=== PATIENT | male | born 1960 | race Caucasian/White ===

== ENCOUNTER 2019-04-19 08:36 | Emergency (ER) | payer BC, OTHER ==
[2019-04-19 08:40] VITALS: TEMP 98.9
[2019-04-19] MEDS ORDERED: LIDOCAINE 1% INJ 10MG/ML (20 ML MDV) SQ ONE (08:42)
--- NOTE | 2019-04-19 08:48 | ED ---
General Adult HPI - General Chief complaint: Wound/Laceration Stated complaint: IHS-finger injury Time Seen by Provider: 04/19/19 08:42 Source: patient Mode of arrival: ambulatory Limitations: no limitations - History of Present Illness Initial comments: Dictation was produced using [employer] dictation software. please excuse any grammatical, word or spelling errors. Chief Complaint: 59-year-old male presents with left index finger laceration History of Present Illness: Is a 59-year-old male who suffered a left index finger laceration while at work today. Patient states his tetanus is updated 2 years ago. He had a angle inner diameter grinder tool that he was using when his finger got caught with a 3/8 threaded screw. Small piece of tissue was chewed off of his finger. Patient is in other injuries. Alleged incident occurred approximately 30-45 minutes prior to arrival. The ROS documented in this emergency department record has been reviewed and confirmed by me. Those systems with pertinent positive or negative responses have been documented in the HPI. All other systems are other negative and/or noncontributory. PHYSICAL EXAM: General Impression: Alert and oriented x3, not in acute distress HEENT: Normocephalic atraumatic, extra-ocular movements intact, pupils equal and reactive to light bilaterally, mucous membranes moist. Cardiovascular: Heart regular rate and rhythm, S1&S2 audible, no murmurs, rubs or gallops Chest: Lungs clear to auscultation bilaterally, no rhonchi, no wheeze, no rales Abdomen: Bowel sounds present, abdomen soft, non-tender, non-distended, no organomegaly Musculoskeletal: Pulses present and equal in all extremities, no peripheral edema Motor: no focal deficits noted Neurological: CN II-XII grossly intact, no focal motor or sensory deficits noted Skin: Intact with no visualized rashes Left index finger: 1 cm x 0.5cm laceration to the left index finger in the shape of a triangle ED course: 59 y Old male presents with left index finger injury suffered at work. Patient's tetanus is updated. Vital signs upon arrival are within acceptable limits. No active hemorrhaging to the laceration site. he noted has an updated tetanus from 2 years ago. X-ray of the index finger shows no foreign bodies. Wound was irrigated extensively using sterile water. Laceration was repaired. Patient counseled on suture care. He is told to have sutures removed in 10-14 days. Please of Gelfoam was placed over the wound. Patient given bacitracin to keep the wound moist. She flexibility. Patient told to follow up with primary care physician for suture removal or to return to emergency Department for suture removal. Patient told to visualize the wound at least twice daily and to wash with soap and water at home. Return parameters discussed. - Related Data Allergies Allergy/AdvReac Type Severity Reaction Status Date / Time No Known Allergies Allergy Verified 04/19/19 08:40 Review of Systems ROS Statement: Those systems with pertinent positive or pertinent negative responses have been documented in the HPI. ROS Other: All systems not noted in ROS Statement are negative. Past Medical History Past Medical History: Hypertension History of Any Multi-Drug Resistant Organisms: None Reported Past Surgical History: Back Surgery, Joint Replacement Past Psychological History: No Psychological Hx Reported Smoking Status: Never smoker Past Alcohol Use History: Occasional Past Drug Use History: None Reported General Exam Limitations: no limitations Course Vital Signs 04/19/19 04/19/19 08:37 08:40 Temperature 98.9 F Pulse Rate 79 Respiratory 18 20 Rate Blood Pressure 181/88 O2 Sat by Pulse 98 Oximetry Procedures - Laceration Laceration #1 Consent Obtained: verbal consent Indication: laceration Site: other (left index finger, 1 cm) Description: irregular Depth: simple, single layer Anesthetic Used: lidocaine 1% Anesthesia Technique: nerve block Amount (mls): 2 Pre-repair: irrigated extensively Type of Sutures: nylon Size of Sutures: 4-0 Technique: simple, interrupted Patient Tolerated Procedure: well Disposition Clinical Impression: Laceration Disposition: HOME SELF-CARE Condition: Fair Instructions (If sedation given, give patient instructions): Laceration (DC) Additional Instructions: Returns emergency department with worsening pain, redness or bleeding to the site. Otherwise have wound rechecked in 10-14 days for suture removal. Is patient prescribed a controlled substance at d/c from ED?: No Referrals: William Hart DO [Primary Care Provider] - 1-2 days Time of Disposition: 10:00
[2019-04-19 09:36] VITALS: RESP 20
--- NOTE | 2019-04-19 09:47 | XR ---
EXAMINATION TYPE: XR finger LT DATE OF EXAM: 04/19/2019 COMPARISON: NONE HISTORY: Laceration injury with pain. TECHNIQUE: 3 views left second finger are acquired. FINDINGS: No acute fracture or dislocation is seen. Moderate narrowing with mild spurring and subchon dral cystic change at the second DIP joint. Mild narrowing and spurring with subchondral cystic escobar e at the second PIP joint. Mild to moderate diffuse soft tissue swelling slightly more prominent surr ounding the proximal phalanx could in part reflect product of body habitus. No suspicious radiodense foreign body identified in the soft tissue. IMPRESSION: As above.
[2019-04-19] MEDS ORDERED: GELATIN SPONGE,ABSORB (LARGE) 1 EACH SPONGE TOPICAL STA (09:49)
[2019-04-19] MEDS ORDERED: GELATIN SPONGE,ABSORB (SMALL) 1 EACH SPONGE TOPICAL STA (09:51)
[2019-04-19 10:29] VITALS: BP 150/72; PULSE 65
== END 2019-04-19 10:29 | disposition home or self-care (01) ==
LOC: EC 08:36
DX: S61.211A Laceration without foreign body of left index finger without damage to nail, initial encounter (principal); I10 Essential (primary) hypertension; W27.8XXA Contact with other nonpowered hand tool, initial encounter; Y93.H9 Activity, other involving exterior property and land maintenance, building and construction; Y92.69 Other specified industrial and construction area as the place of occurrence of the external cause; Y99.0 Civilian activity done for income or pay
CPT/HCPCS: 73140; 99283; 12001; J2001

== ENCOUNTER 2019-07-28 10:49 | Day surgery (SDC) | payer BC ==
[2019-07-26 13:54] VITALS: BMI 47.5
[~2019-07-28 10:49] MED LIST: LACTATED RINGERS 1,000 ML IV SCH; LIDOCAINE 1% (10MG/ML) FOR IV START INTRADERMA PRN
[2019-07-28 11:10] VITALS: TEMP 98
[2019-07-28] MEDS ORDERED: PROPOFOL 10 MG/ML 20 ML VIAL IV ONE (11:15)
[2019-07-28 11:48] VITALS: RESP 18
--- NOTE | 2019-07-28 11:53 | P.PCN ---
Date of Procedure: 07/28/19 Description of Procedure: BRIEF HISTORY: Patient is a 59-year-old male presenting for outpatient colonoscopy for screening from malignant neoplasm of the colon. Does report worsening constipation recently. Started on a stool softener with some improvement in symptoms. Last colonoscopy at the age of 51. He does occasionally note some bright red blood per rectum. PROCEDURE PERFORMED: Colonoscopy. PREOPERATIVE DIAGNOSIS: Screening for malignant neoplasm of the colon, Last colonoscopy at 51. ESTIMATED BLOOD LOSS: Minimal. IV sedation per Anesthesia. PROCEDURE: After informed consent was obtained, the patient, was brought into the endoscopy unit. IV sedation was administered by Anesthesia under continuous monitoring. Digital rectal examination was normal. Initially the Olympus CF-190 flexible video colonoscope was then inserted in the rectum, gradually advanced into the cecum without any difficulty. Careful examination was performed as the scope was gradually being withdrawn. Ileocecal valve and the appendiceal orifice were visualized and appeared normal. Prep was excellent. Mucosa of the cecum, ascending colon, transverse colon, descending colon, sigmoid colon, and rectum appeared normal, low-grade internal hemorrhoids noted. Retroflexion was performe d in the rectum and no lesions were seen. The patient tolerated the procedure well. IMPRESSION: Normal-appearing colon from rectum to cecum. Low-grade internal hemorrhoids. RECOMMENDATIONS: Findings of this examination were discussed with the patient. Okay to resume diet. Okay to resume medications. Would recommend repeat colonoscopy in 10 years for screening. Patient has been recommended to take MiraLAX therapy daily for bowel movements.
[2019-07-28 12:08] VITALS: BP 131/76; PULSE 75
== END 2019-07-28 12:30 | disposition home or self-care (01) ==
LOC: ORWHC2ENDO 10:49
PROVIDERS: ATTEND Internal Medicine
DX: K64.8 Other hemorrhoids (principal); K59.00 Constipation, unspecified; G47.33 Obstructive sleep apnea (adult) (pediatric); Z79.1 Long term (current) use of non-steroidal anti-inflammatories (NSAID); Z96.653 Presence of artificial knee joint, bilateral; Z99.89 Dependence on other enabling machines and devices
CPT/HCPCS: 45378; J2704

== ENCOUNTER 2020-07-26 17:21 | Emergency (ER) | payer BC, OTHER ==
[2020-07-26 17:38] VITALS: BP 150/83; PULSE 87; RESP 18; TEMP 98.6
[2020-07-26] MEDS ORDERED: LIDOCAINE 1% INJ 10MG/ML (20 ML MDV) SQ ONE (19:06)
--- NOTE | 2020-07-26 19:26 | ED ---
Lower Extremity Injury HPI - General Chief Complaint: Extremity Injury, Lower Stated Complaint: IHS LT Toe Injury Time Seen by Provider: 07/26/20 18:45 Source: patient, RN notes reviewed Mode of arrival: wheelchair Limitations: no limitations - History of Present Illness Initial Comments: Vision is a 60-year-old male that presents emergency department complaining of left foot fifth digit pain. He notes he was at work when his toe got rolled over by a work cart with a heavy object on it. He notes that the car rolled over still toe boots. He noted his toe did not bleed very much but his work symptoms emergently get evaluated as it was swollen, bruised and did have a small laceration to the answer aspect of the fifth toe at the metatarsal phalan geal joint. Patient notes that his toe does feel little bit numb at this point. But he does have good range of motion sensation and feeling in his toe. Patient stated that the pain at that time was tolerable and does not need any pain medication. She denied any other complaints or issues. He denied any chest pain shortness breath headache nausea vomiting diarrhea constipation fever fatigue chills. - Related Data Home Medications Medication Instructions Recorded Confirmed Bisoprolol-Hctz 5-6.25 mg [Ziac 1 tab PO DAILY 07/26/19 07/26/19 5-6.25 MG] Naproxen Sodium [Aleve] 220 mg PO DIRECTED PRN 07/26/19 07/28/19 Previous Rx's Medication Instructions Recorded Cephalexin [Keflex] 500 mg PO Q6HR #40 cap 07/26/20 Allergies Allergy/AdvReac Type Severity Reaction Status Date / Time No Known Allergies Allergy Verified 07/26/20 17:38 Review of Systems ROS Statement: Those systems with pertinent positive or pertinent negative responses have been documented in the HPI. ROS Other: All systems not noted in ROS Statement are negative. Past Medical History Past Medical History: Hypertension, Sleep Apnea/CPAP/BIPAP Additional Past Medical History / Comment(s): C-PAP MACHINE, CONSTIPATION WITH OCCASIONAL BLOOD. History of Any Multi-Drug Resistant Organisms: None Reported Past Surgical History: Back Surgery, Joint Replacement Additional Past Surgical History / Comment(s): TOTAL RIGHT & LEFT KNEES. Past Anesthesia/Blood Transfusion Reactions: No Reported Reaction, Motion Sickness Past Psychological History: No Psychological Hx Reported Smoking Status: Never smoker Past Alcohol Use History: Occasional Past Drug Use History: None Reported - Past Family History Father Family Medical History: Cancer Additional Family Medical History / Comment(s): SKIN CANCER General Exam Limitations: no limitations General appearance: alert, in no apparent distress Head exam: Present: atraumatic, normocephalic, normal inspection Eye exam: Present: normal appearance, PERRL, EOMI. Absent: scleral icterus, conjunctival injection, periorbital swelling Neck exam: Present: normal inspection Respiratory exam: Present: normal lung sounds bilaterally. Absent: respiratory distress, wheezes, rales, rhonchi, stridor Cardiovascular Exam: Present: regular rate, normal rhythm, normal heart sounds. Absent: systolic murmur, diastolic murmur, rubs, gallop, clicks Left Foot/Toe exam: Present: tenderness (Over the fifth digit), swelling (Fifth digit), laceration (To the plantar aspect of the fifth digit at the metatarsal phalangeal joint), ecchymosis (Fifth digit). Absent: full ROM (Secondary to swelling and pain) Neurovascular tendon exam: Present: no vascular compromise Neurological exam: Present: alert, oriented X3 Psychiatric exam: Present: normal affect, normal mood Skin exam: Present: warm, dry, intact, normal color. Absent: rash Course Vital Signs 07/26/20 17:35 Temperature 98.6 F Pulse Rate 87 Respiratory 18 Rate Blood Pressure 150/83 O2 Sat by Pulse 98 Oximetry Procedures - Laceration Laceration #1 Consent Obtained: verbal consent Indication: laceration Site: foot (Interdigit space between fifth and fourth toe on left foot) Size (cm): 3 Description: linear Depth: simple, single layer Anesthetic Used: lidocaine 1% Anesthesia Technique: nerve block Pre-repair: irrigated extensively Type of Sutures: nylon Size of Sutures: 5-0 Number of Sutures: 3 Technique: simple, interrupted Patient Tolerated Procedure: well, no complications Medical Decision Making - Medical Decision Making 60-year-old male complaining of left foot fifth digit injury. X-ray of the left toes, lidocaine ordered. X-ray shows to acute fractures in the proximal phalanx and the distal phalanx of the left little toe. 500 mg of Keflex ordered due to patient having open wound and area of injury. Patient tolerated suturing well. Case discussed with Dr. Null outpatient discharge home with follow-up primary care. - Radiology Data Radiology results: report reviewed, image reviewed X-ray of the left toes: There is nondisplaced fracture of the head of the proximal phalanx of the little toe. There is no dislocation. There is also nondisplaced transverse comminuted fracture through the distal phalanx of the little toe. The middle phalanx is intact. Disposition Clinical Impression: Fracture of fifth toe, left, open, Laceration Disposition: HOME SELF-CARE Condition: Stable Instructions (If sedation given, give patient instructions): Toe Fracture (ED) Additional Instructions: Please return to the Emergency Department if symptoms worsen or any other concerns. Take Tylenol and Motrin as needed for pain. Follow-up with primary care as needed. Please return in 10 days to have sutures removed. Follow-up with orthopedist. Keep area as clean and dry possible. Take antibiotics as prescribed until complete. Is patient prescribed a controlled substance at d/c from ED?: No Referrals: William Hart DO [Primary Care Provider] - 1-2 days Elian Valdez MD [STAFF PHYSICIAN] - 1-2 days Time of Disposition: 20:25
--- NOTE | 2020-07-26 19:41 | XR ---
EXAMINATION TYPE: XR toes LT DATE OF EXAM: 07/26/2020 COMPARISON: NONE HISTORY: Pain TECHNIQUE: 3 views FINDINGS: There is nondisplaced fracture of the head of the proximal phalanx of the little toe. There is no dislocation. There is also nondisplaced transverse comminuted fracture through the distal phal anx of the little toe. The middle phalanx is intact. IMPRESSION: Acute fractures of the little toe as above.
[2020-07-26] MEDS ORDERED: CEPHALEXIN 500 MG CAP PO STA (19:46)
== END 2020-07-26 20:43 | disposition home or self-care (01) ==
LOC: EC 17:21
DX: S92.515B Nondisplaced fracture of proximal phalanx of left lesser toe(s), initial encounter for open fracture (principal); S92.535B Nondisplaced fracture of distal phalanx of left lesser toe(s), initial encounter for open fracture; I10 Essential (primary) hypertension; W20.8XXA Other cause of strike by thrown, projected or falling object, initial encounter; Y99.0 Civilian activity done for income or pay
CPT/HCPCS: 99283; 12002; 73660; J2001

== ENCOUNTER → 2021-04-08 | Outpatient (CLI) | payer BC ==
--- NOTE | 2021-04-08 10:38 | FL ---
EXAMINATION TYPE: FL barium swallow DATE OF EXAM: 04/08/2021 COMPARISON: None HISTORY: Dysphagia lump in throat dryness with swallowing TECHNIQUE: Single contrast technique was utilized with the patient's lap band. Real-time fluoroscopy and overhead radiographs were obtained. FINDINGS: 46 seconds of fluoroscopy time was provided. Thin barium was utilized. 84 images were obtained. Lap band position appears normal esophagus-normal caliber has normal contour 2 the gastroesophageal j unction. No is made of tertiary contractions. Note is also made of a persistent cricopharyngeus muscl e during the exam. IMPRESSION: 1. Persistence of a cricopharyngeus muscle during swallowing. 2. Presbyesophagus with tertiary contractions.
--- NOTE | 2021-04-08 10:42 | CT ---
EXAMINATION TYPE: CT soft tissue neck w con DATE OF EXAM: 04/08/2021 8:56 AM COMPARISON: None available HISTORY: lump in throat non palpable CT DLP: 877.80 mGycm Automated exposure control for dose reduction was used. CONTRAST: CT scan of the neck is performed following with IV Contrast, patient injected with 100 mL of Isovue 3 00. Axial images are obtained, coronal and sagittal reformatted images are reviewed. FINDINGS: Airway: Slightly prominent lingual tonsils more on the right side, please correlate clinically. Furth er ENT consultation can be considered. Otherwise unremarkable nasopharynx, oropharynx, hypopharynx, l arynx and visualized portion of the trachea and esophagus. Parotid/submandibular glands: No gross abnormality seen. Unremarkable thyroid gland. Carotid/Vascular Structures: Unremarkable Osseous Structures: Mucosal thickening of the ethmoid air cells. Mild degenerative changes of the cer vical spine. No aggressive bone lesion. Other: No pathologically enlarged lymph nodes in the neck. 4 mm metallic density seen just to the rig ht of the midline in the subcutaneous fat at the level of the right sternoclavicular joint, please co rrelate clinically. IMPRESSION: Slightly prominent lingual tonsils more on the right side, please correlate clinically. Further ENT consultation can be considered. No other significant abnormality identified in the neck. Incidental findings as described above.
== END | disposition home or self-care (01) ==
LOC: RADCTMAIN 08:23
PROVIDERS: ATTEND Otolaryngology
DX: K21.9 Gastro-esophageal reflux disease without esophagitis (principal); R22.1 Localized swelling, mass and lump, neck; R13.10 Dysphagia, unspecified
CPT/HCPCS: 74220; 70491; Q9967

== ENCOUNTER → 2021-06-05 | Outpatient (CLI) | payer BC ==
--- NOTE | 2021-06-05 17:26 | CONS ---
CONSULTATION DATE OF SERVICE: 06/05/2021 This 61-year-old gentleman has been re-evaluated in [facility] for obstructive sleep apnea-hypopnea syndrome. The last time I saw this patient was in 2013. The patient continues to use his CPAP equipment, but he started to wake up in the middle of the night. His complained of a significant amount of movements during sleep. His sleep schedule is from 10:30 p.m. to 5:30 a.m. on weekdays and from 11 p.m. to 6 a.m. on weekends. No problems with falling asleep. He wakes up from sleep around 2 or 3 times and is constantly twitching to his legs during the night, according to his . Usually he sleeps on the back position. During the day he feels sleepy. He takes one nap around 4 p.m. [place] Sleepiness Scale today is 8. No history of hypnagogic hallucinations, sleep paralysis or cataplexy. I checked his CPAP unit. Usage is 30/30 nights for more than 4 hours, average 6.9 hours per night. Pressure is 15 cm of water. The machine does not have information about apnea-hypopnea index. PAST MEDICAL HISTORY: Positive for hypertension. PAST SURGICAL HISTORY: Lap band surgery, bilateral knee replacement, left foot toe fracture, back surgery. SOCIAL HISTORY: Negative for smoking. Alcohol consumption occasional. REVIEW OF SYSTEMS: Awakenings from sleep while on treatment with CPAP, twitching of legs during sleep, sleepiness during the day. The patient takes naps. No fevers. No double vision. No recent chest pain. No shortness of breath. No abdominal pain. No bleeding episodes. No blood in the urine. No seizure episodes. MEDICATIONS: 1. Atorvastatin 20 mg once a day. 2. Lisinopril 20 mg once a day. 3. Amlodipine 5 mg once a day. 4. Ziac. PHYSICAL EXAMINATION: GENERAL: Pleasant gentleman without distress. VITAL SIGNS: BP 146/77, HR 69, RR 16, height 6 feet 1 inch, weight 371.6, body mass index 48.9, temperature 97.3, oxygen saturation at room air 95%. HEENT: PERRLA, EOMI, evaluation of oropharynx showed tongue protrudes midline. Extremely low position of soft palate; Mallampati IV. NECK: Supple, no JVD. Thyroid is not palpable. Neck is wide; 19 inches in circumference. LUNGS: Clear to percussion and to auscultation. Good air exchange. No wheezing or rhonchi. HEART: S1, S2 regular. No murmurs, gallops, or rubs. ABDOMEN: Obese. EXTREMITIES: No clubbing or cyanosis. STEAM SHOVELMAN: Awake, alert, and oriented X3. Cranial nerves 2 to 7 intact. There is no fasciculation or atrophy. noted. No focal deficits observed. IMPRESSION: 1. Severe obstructive sleep apnea-hypopnea syndrome. The patient demonstrated 100% compliance with treatment but has awakenings from sleep while using CPAP machine. CPAP unit does not have information about apnea-hypopnea index. 2. Periodic limb movements. 3. Hypertension. 4. Obesity; body mass index 48.9. 5. Status post lap band surgery. 6. Status post bilateral knee replacement. 7. Status post back surgery. 8. Status post left foot toe fracture in 2020. 9. Hyperlipidemia. PLAN: 1. CPAP titration for re-evaluation of effective CPAP pressure at the present time. Patient's CPAP unit does not have information about apnea-hypopnea index. Patient has awakenings from sleep, has movements of his legs during the night. We will check leg movements at the present time. 2. Please check iron profile, including ferritin level. Low level of iron may increase risk for periodic limb movements. 3. Losing weight. 4. No driving if feeling sleepiness. 5. Following plan after reviewing results of titration. Patient may need pharmacotherapy for periodic limb movements and possibly pressure in the machine may need to be adjusted. Thank you very much for referring this patient for consultation. Sincerely, Carlos Skinner MD, PhD, FAASM Diplomat of [employer] Sleep Medicine Board of [employer] [facility] Hazel Hurst MMODL / IJN: [id number] /
== END | disposition home or self-care (01) ==
LOC: SLEEP 15:24
PROVIDERS: ATTEND Internal Medicine
DX: G47.33 Obstructive sleep apnea (adult) (pediatric) (principal); I10 Essential (primary) hypertension; E66.9 Obesity, unspecified; E78.5 Hyperlipidemia, unspecified; Z68.42 Body mass index [BMI] 45.0-49.9, adult; Z98.890 Other specified postprocedural states; Z96.653 Presence of artificial knee joint, bilateral
CPT/HCPCS: 99211

== ENCOUNTER → 2021-08-14 | Outpatient (CLI) | payer BC ==
--- NOTE | 2021-08-14 18:05 | P.PN ---
Subjective DATE: [] FOLLOW UP VISIT. Patient with obstructive sleep apnea hypopnea syndrome return to sleep center for follow-up visit. Recently patient had Pap titration for treatment of obstructive sleep apnea hypopnea syndrome. Patient received new PAP therapy unit and today is first visit after treatment was started with the new CPAP equipment. Patient was able to use PAP equipment every night for the whole night. The patient does not have significant problems with the mask, PAP pressure and humidification. [place] sleepiness scale is 6. I checked information from PAP unit. PAP unit pressure from 9-15, average 12.6 cm H2O. Usage is 100 % for more then 4 hours, average 6.8 hours per night. Leak is 22 l/m, which is in acceptable range. Apnea Hypopnea Index is 5.7, which is borderline. MEDICATIONS:1. Lisinopril 20 mg once a day 2. Atorvastatin 20 mg once a day 3. Amlodipine 5 mg once a day 4. Ziac During physical exam: GENERAL: A pleasant patient without any distress. VITAL SIGNS: BP 135/77, HR 72, RR 16 , weight 380.8, temperature 96.9, oxygen saturation at room air and he 6% . HEENT: PERRLA, EOMI.low position of soft palate, Mallapati for . NECK: Supple. No JVD. LUNGS: Clear to percussion and to auscultation. Good air exchange. No wheezing or rhonchi. HEART: S1, S2 regular. ABDOMEN: Soft and nontender. Obese EXTREMITIES: No clubbing or cyanosis. SEARCH DIRECTOR: Awake, alert, and oriented x3. No focal deficit. Impressions: 1. Obstructive sleep apnea-hypopnea syndrome. Patient demonstrated great compliance with treatment, benefiting from treatment. 2. Hypertension. 3. Obesity. 4. Periodic limb movements during titration without significant amount of micro-arousals. 5. Status post lap band surgery. 6. Status post bilateral knee replacement. 7. Status post back surgery. 8. Status post left fourth toe fracture. 9. Hyperlipidemia. Plan: 1. Continue using PAP equipment every night for the whole night. 2. To change air filter at least 1-2 times per month. 3. PAP unit should stay lower then position of the head. 4. Advised patient to remove all remaining water from humidifier canister daily and make it dry after each usage. Refill canister with fresh distilled water before each usage. 5. Sleep hygiene with regular time in bed for at least 8 hours. 6. Precautions related to driving. No driving if feel any sleepiness. 7. I will maintain prescription for PAP supplies including mask, tube, filters. 8. Follow up visit in 6 months or earlier if patient has any problems. 9. Watching weight. Thank you very much for allowing me to participate in the management of your patient. Carlos Skinner MD, PhD, FAASM. Diplomat of [place] [employer], Sleep Medicine Board by [place] [employer] Dental Hygiene Teacher of [facility] [place]
== END | disposition home or self-care (01) ==
LOC: SLEEP 15:20
PROVIDERS: ATTEND Internal Medicine
DX: G47.33 Obstructive sleep apnea (adult) (pediatric) (principal); E66.9 Obesity, unspecified; I10 Essential (primary) hypertension; E78.5 Hyperlipidemia, unspecified; Z96.653 Presence of artificial knee joint, bilateral; Z98.890 Other specified postprocedural states
CPT/HCPCS: 99212

== ENCOUNTER → 2022-02-19 | Outpatient (CLI) | payer BC ==
--- NOTE | 2022-02-19 16:58 | P.PN ---
Subjective DATE: 02/19/2022 FOLLOW UP VISIT. Patient with obstructive sleep apnea hypopnea syndrome return to sleep center for follow-up visit. Information from previous visit have been reviewed. Patient is using PAP equipment every night for the whole night, getting PAP supplies in time. The patient does not have significant problems with the mask, PAP unit and humidification. [place] sleepiness scale is 7, which is normal. I checked information from PAP unit. PAP unit pressure 9-15, average 12.3, maximum 13.4 cm H2O. Usage is 100 % for more then 4 hours, average 6.5 hours per night. Leak is in high range 38.2 l/m. Apnea Hypopnea Index is 6.2, which is slightly above border. MEDICATIONS:1. Atorvastatin 20 mg once a day 2. Lisinopril 20 mg once a day 3. Amlodipine 5 mg once a day 4. Ziac 10/6.25 mg once a day During physical exam: GENERAL: A pleasant patient without any distress. VITAL SIGNS: BP 166/73, HR 75, RR 18, weight 387.2, temperature 97.6, oxygen saturation at room air 95 % . HEENT: PERRLA, EOMI.low position of soft palate, Mallapati 4 . NECK: Supple. No JVD. LUNGS: Clear to percussion and to auscultation. Good air exchange. No wheezing or rhonchi. HEART: S1, S2 regular. ABDOMEN: Soft and nontender.[] EXTREMITIES: No clubbing or cyanosis. GENERAL ASSISTANT: Awake, alert, and oriented x3. No focal deficit. Impressions: 1. Obstructive sleep apnea-hypopnea syndrome. Patient demonstrated great compliance with treatment, benefiting from treatment. 2. Hypertension. 3. Periodic limb movements during titration without micro-arousals, no clinical symptoms. 4. Obesity. Patient increased weight and 7 pounds comparing to the previous visit. 5. Status post lap band surgery. 6. Status post back surgery. 7. Hyperlipidemia. 8. Status post bilateral knee replacement. Plan: 1. Continue using PAP equipment every night for the whole night. I increased maximal pressure up to 17 cm of water. 2. To change air filter at least 1-2 times per month. 3. PAP unit should stay lower then position of the head. 4. Advised patient to remove all remaining water from humidifier canister daily and make it dry after each usage. Refill canister with fresh distilled water before each usage. 5. Sleep hygiene with regular time in bed for at least 8 hours. 6. Precautions related to driving. No driving if feel any sleepiness. 7. I will maintain prescription for PAP supplies including mask, tube, filters. 8. Follow up visit in 6 months or earlier if patient has any problems. 9. Watching and losing weight. Thank you very much for allowing me to participate in the management of your patient. Carlos Skinner MD, PhD, FAASM. Diplomat of [place] [employer], Sleep Medicine Board by [place] [employer] Transfer Car Operator of [facility] [place]
== END ==
LOC: SLEEP 15:35
PROVIDERS: ATTEND Internal Medicine
DX: G47.33 Obstructive sleep apnea (adult) (pediatric) (principal); Z99.89 Dependence on other enabling machines and devices; I10 Essential (primary) hypertension; G47.61 Periodic limb movement disorder; E66.9 Obesity, unspecified; Z98.84 Bariatric surgery status; Z98.890 Other specified postprocedural states; E78.5 Hyperlipidemia, unspecified; Z96.653 Presence of artificial knee joint, bilateral
CPT/HCPCS: 99212

== ENCOUNTER → 2022-09-17 | Outpatient (CLI) | payer BC ==
--- NOTE | 2022-09-17 11:16 | P.PN ---
Subjective DATE: 09/16/2022 FOLLOW UP VISIT. Patient with obstructive sleep apnea hypopnea syndrome return to sleep center for follow-up visit. Information from previous visit have been reviewed. Patient is using PAP equipment every night for the whole night, getting PAP supplies in time. The patient does not have significant problems with the mask, PAP unit and humidification. [place] sleepiness scale is 7, which is normal. I checked information from PAP unit. PAP unit pressure 9-17, average 10.0 cm H2O. Usage is 100 % for more then 4 hours, average 7 hours per night. Leak is 24.1 l/m, which is in acceptable range. Apnea Hypopnea Index is 2.1, which is normal. MEDICATIONS:1. Atorvastatin 20 mg once a day 2. Lisinopril 20 mg once a day 3. Amlodipine 5 mg once a day 4. Ziac 10/625 milligrams once a day During physical exam: GENERAL: A pleasant patient without any distress. VITAL SIGNS: BP 110/73, HR 64, RR 16 , weight 321.2, temperature 97.9, oxygen saturation at room air 92 % . HEENT: PERRLA, EOMI.low position of soft palate, Mallapati 4 . NECK: Supple. No JVD. LUNGS: Clear to percussion and to auscultation. Good air exchange. No wheezing or rhonchi. HEART: S1, S2 regular. ABDOMEN: Soft and nontender.[] EXTREMITIES: No clubbing or cyanosis. HISTOLOGY SPECIALIST: Awake, alert, and oriented x3. No focal deficit. Impressions: 1. Obstructive sleep apnea-hypopnea syndrome. Patient demonstrated great compliance with treatment, benefiting from treatment. 2. Hypertension. 3. history of periodic limb movements, presently no symptoms and complaints. 4. history of obesity, patient lost 66 pounds comparing with previous visit. 5. status post lap band surgery. 6. status post back surgery. 7. status post bilateral knee replacement. 8. hyperlipidemia. Plan: 1. Continue using PAP equipment every night for the whole night. 2. To change air filter at least 1-2 times per month. 3. PAP unit should stay lower then position of the head. 4. Advised patient to remove all remaining water from humidifier canister daily and make it dry after each usage. Refill canister with fresh distilled water before each usage. 5. Sleep hygiene with regular time in bed for at least 8 hours. 6. Precautions related to driving. No driving if feel any sleepiness. 7. I will maintain prescription for PAP supplies including mask, tube, filters. 8. Watching and losing weight. 9. Follow up visit in 6 months or earlier if patient has any problems. Thank you very much for allowing me to participate in the management of your patient. Carlos Skinner MD, PhD, FAASM. Diplomat of [place] [employer], Sleep Medicine Board by [place] [employer] Engagement Lead of [facility] [place]
== END ==
LOC: 3 N SLEEP 09:56
PROVIDERS: ATTEND Internal Medicine
DX: G47.33 Obstructive sleep apnea (adult) (pediatric) (principal); E66.9 Obesity, unspecified; E78.5 Hyperlipidemia, unspecified; I10 Essential (primary) hypertension; Z98.84 Bariatric surgery status; Z99.89 Dependence on other enabling machines and devices; Z79.899 Other long term (current) drug therapy; Z96.653 Presence of artificial knee joint, bilateral; Z98.890 Other specified postprocedural states
CPT/HCPCS: 99212

== ENCOUNTER → 2023-03-25 | Outpatient (CLI) | payer BC ==
--- NOTE | 2023-03-25 11:17 | P.PN ---
Subjective DATE: 03/25/2023 FOLLOW UP VISIT. Patient with obstructive sleep apnea hypopnea syndrome return to sleep center for follow-up visit. Information from previous visit have been reviewed. Patient is using PAP equipment every night for the whole night, getting PAP supplies in time. The patient does not have significant problems with the mask, PAP unit and humidification. [place] sleepiness scale is 7, which is normal. I checked information from PAP unit. PAP unit pressure 9-17, average 10.8 cm H2O. Usage is 100 % for more then 4 hours, average 7 hours per night. Leak is 20.2 l/m, which is in acceptable range. Apnea Hypopnea Index is 2.9, which is normal. MEDICATIONS:1. Atorvastatin 20 mg once a day 2. Lisinopril 20 mg once a day 3. Amlodipine 5 mg once a day 4. Ziac 10/6.25 milligrams once a day During physical exam: GENERAL: A pleasant patient without any distress. VITAL SIGNS: BP 146/76, HR 71, RR 16 , weight 351.6, temperature 98.0, oxygen saturation at room air 94 % . HEENT: PERRLA, EOMI.low position of soft palate, Mallapati 4 . NECK: Supple. No JVD. LUNGS: Clear to percussion and to auscultation. Good air exchange. No wheezing or rhonchi. HEART: S1, S2 regular. ABDOMEN: Soft and nontender.[] EXTREMITIES: No clubbing or cyanosis. FINANCIAL AGENT: Awake, alert, and oriented x3. No focal deficit. Impressions: 1. Obstructive sleep apnea-hypopnea syndrome. Patient demonstrated great compliance with treatment, benefiting from treatment. 2. Obesity, patient increased weight on 30 pounds comparing with previous visit. 3. Hypertension. 4. History of periodic limb movements, no complaints at the present time. 5. Status post lap band surgery. 6. Status post back surgery. 7. Hyperlipidemia. 8. Status post bilateral knee replacement. Plan: 1. Continue using PAP equipment every night for the whole night. 2. To change air filter at least 1-2 times per month. 3. PAP unit should stay lower then position of the head. 4. Advised patient to remove all remaining water from humidifier canister daily and make it dry after each usage. Refill canister with fresh distilled water before each usage. 5. Sleep hygiene with regular time in bed for at least 8 hours. 6. Precautions related to driving. No driving if feel any sleepiness. 7. I will maintain prescription for PAP supplies including mask, tube, filters. 8. Follow up visit in 6 months or earlier if patient has any problems. 9. Watching and losing weight. Thank you very much for allowing me to participate in the management of your patient. Carlos Skinner MD, PhD, FAASM. Diplomat of [place] [employer], Sleep Medicine Board by [place] [employer] [place] Bi Developer of [facility] [place]
== END ==
LOC: 3 N SLEEP 10:08
PROVIDERS: ATTEND Internal Medicine
DX: G47.33 Obstructive sleep apnea (adult) (pediatric) (principal); E66.9 Obesity, unspecified; I10 Essential (primary) hypertension; E78.5 Hyperlipidemia, unspecified; G47.61 Periodic limb movement disorder; Z98.84 Bariatric surgery status; Z98.890 Other specified postprocedural states; Z96.653 Presence of artificial knee joint, bilateral; Z79.899 Other long term (current) drug therapy; Z99.89 Dependence on other enabling machines and devices
CPT/HCPCS: 99212

== ENCOUNTER → 2024-02-17 | Outpatient (CLI) | payer BC ==
[2024-02-17 11:39] VITALS: BP 130/79; PULSE 80; RESP 16; TEMP 98.2
--- NOTE | 2024-02-17 11:55 | P.PROGSL ---
Subjective DATE: 2024 FOLLOW UP VISIT. Patient with obstructive sleep apnea hypopnea syndrome return to sleep center for follow-up visit. Information from previous visit have been reviewed. Patient is using PAP equipment every night for the whole night, getting PAP supplies in time. The patient does not have significant problems with the mask, PAP unit and humidification. [place] sleepiness scale is 6, which is normal. I checked information from PAP unit. PAP unit pressure 9-17, average 10.6 cm H2O. Usage is 100% for more then 4 hours, average 7.2 hours per night. Leak is 18 l/m, which is in acceptable range. Apnea Hypopnea Index is 2.2, which is normal. MEDICATIONS have been reviewed, please see below. During physical exam: GENERAL: A pleasant patient without any distress. VITAL SIGNS: Please see below, weight is 358, patient is weight on 7 pounds lbs. HEENT: PERRLA, EOMI.low position of soft palate, Mallapati 4 . NECK: Supple. No JVD. LUNGS: Clear to percussion and to auscultation. Good air exchange. No wheezing or rhonchi. HEART: S1, S2 regular. ABDOMEN: Soft and nontender. Obese EXTREMITIES: No clubbing or cyanosis. CHILDREN'S MINISTRY DIRECTOR: Awake, alert, and oriented x3. No focal deficit. Impressions: 1. Obstructive sleep apnea-hypopnea syndrome. Patient demonstrated great compliance with treatment, benefiting from treatment. 2. Obesity, BMI 47.2, patient increased weight on 7 pounds comparing with previous visit. 3. History of periodic limb movements, no complaints at the present time. 4. Hypertension. 5. Status post back surgery. 6. Hyperlipidemia. 7. Status post lap band surgery. 8. Status post bilateral knee replacement. Plan: 1. Continue using PAP equipment every night for the whole night. 2. Sleep hygiene with regular time in bed for at least 7.5-8 hours 3. PAP unit should stay lower then position of the head. 4. Advised patient to remove all remaining water from humidifier canister daily and make it dry after each usage. Refill canister with fresh distilled water before each usage. 5. Watching and losing weight. 6. Precautions related to driving. No driving if feel any sleepiness. 7. I will maintain prescription for PAP supplies including mask, tube, filters. 8. Follow up visit in 8 months or earlier if patient has any problems. Thank you very much for allowing me to participate in the management of your patient. Carlos Skinner MD, PhD, FAASM. Diplomat of [place] [employer], Sleep Medicine Board by [place] [employer] Import/Export Administrator of [facility] [place] Objective - Vital Signs Vital Signs: Vital Signs Temp 98.2 F 02/17/24 11:38 Pulse 80 02/17/24 11:38 Resp 16 02/17/24 11:38 BP 130/79 02/17/24 11:38 Pulse Ox 95 02/17/24 11:38 FiO2 Intake & Output 02/16/24 02/17/24 02/17/24 18:59 06:59 18:59 Weight 162.386 kg Home Medications: Home Medications Medication Instructions Recorded Confirmed Type Bisoprolol-Hctz 5-6.25 mg [Ziac 1 tab PO DAILY 07/26/19 02/17/24 History 5-6.25 MG] Naproxen Sodium [Aleve] 220 mg PO DIRECTED PRN 07/26/19 07/28/19 History Cephalexin [Keflex] 500 mg PO Q6HR #40 cap 07/26/20 Rx Atorvastatin [Lipitor] 20 mg PO DAILY 02/17/24 02/17/24 History Semaglutide [Wegovy] 0.25 mg SQ WEEKLY 02/17/24 02/17/24 History amLODIPine [Norvasc] 5 mg PO DAILY 02/17/24 02/17/24 History lisinopriL [Zestril] 20 mg PO DAILY 02/17/24 02/17/24 History
== END ==
LOC: 3 N SLEEP 11:29
PROVIDERS: ATTEND Internal Medicine
DX: G47.33 Obstructive sleep apnea (adult) (pediatric) (principal); E78.5 Hyperlipidemia, unspecified; E66.9 Obesity, unspecified; G47.61 Periodic limb movement disorder; I10 Essential (primary) hypertension; Z98.890 Other specified postprocedural states; Z68.42 Body mass index [BMI] 45.0-49.9, adult; Z99.89 Dependence on other enabling machines and devices; Z79.899 Other long term (current) drug therapy
CPT/HCPCS: 99212

== ENCOUNTER 2024-03-08 10:24 | Day surgery (SDC) | payer BC ==
[2024-03-02 16:04] VITALS: BMI 45.6
[~2024-03-08 10:24] MED LIST changes: -LIDOCAINE 1% (10MG/ML) FOR IV START INTRADERMA PRN
[2024-03-08 11:00] LABS: Glucose,Whole Blood 94 mg/dL (70-110)
[2024-03-08] MEDS: LACTATED RINGERS 1,000 ML IV ONE (11:00)
[2024-03-08 11:02] VITALS: TEMP 98
[2024-03-08] MEDS ORDERED: LIDOCAINE 2% (PF) 20 MG/ML 5 ML VIAL ONE (11:54)
[2024-03-08] MEDS ORDERED: PROPOFOL 10 MG/ML 20 ML VIAL IV ONE (11:54)
--- NOTE | 2024-03-08 11:56 | P.GSHP ---
History of Present Illness H&P Date: 03/08/24 Chief Complaint: Rectal bleeding 64-year-old male was having some heavier rectal bleeding with clots in November. Better lately after doing a suppository. Last colonoscopy 4.5 years ago. Some straining and constipation at times. Takes MiraLAX intermittently. No family history of colon cancer. Last colonoscopy normal. Past Medical History Past Medical History: Hyperlipidemia, Hypertension, Osteoarthritis (OA), Sleep Apnea/CPAP/BIPAP Additional Past Medical History / Comment(s): CPAP USE. History of Any Multi-Drug Resistant Organisms: None Reported Past Surgical History: Back Surgery, Bariatric Surgery, Joint Replacement, Orthopedic Surgery Additional Past Surgical History / Comment(s): Lumbar laminectomy, bilateral knee replacements, bilateral carpal tunnel surgery, lap band. Past Anesthesia/Blood Transfusion Reactions: No Reported Reaction, Motion Sickness Smoking Status: Never smoker - Past Family History Father Family Medical History: Cancer Additional Family Medical History / Comment(s): SKIN CANCER. Medications and Allergies Home Medications Medication Instructions Recorded Confirmed Type Bisoprolol-Hctz 5-6.25 mg [Ziac 1 tab PO QAM 07/26/19 03/02/24 History 5-6.25 MG] Atorvastatin [Lipitor] 20 mg PO QAM 02/17/24 03/02/24 History Semaglutide [Wegovy] 0.25 mg SQ WE 02/17/24 03/02/24 History amLODIPine [Norvasc] 5 mg PO QAM 02/17/24 03/02/24 History lisinopriL [Zestril] 20 mg PO QAM 02/17/24 03/02/24 History Multivitamins, Thera [Multivitamin 1 tab PO DAILY 03/02/24 03/02/24 History (formulary)] Allergies Allergy/AdvReac Type Severity Reaction Status Date / Time No Known Allergies Allergy Verified 03/02/24 15:48 Surgical - Exam Vital Signs Temp Pulse Resp BP Pulse Ox 98 F 88 18 148/68 94 L 03/08/24 11:01 03/08/24 11:01 03/08/24 11:01 03/08/24 11:01 03/08/24 11:01 Physical exam: General: Well-developed, well-nourished HEENT: Normocephalic, sclerae nonicteric Abdomen: Nontender, nondistended Extremities: No edema Neuro: Alert and oriented Assessment and Plan (1) Rectal bleeding Narrative/Plan: Will proceed with colonoscopy at this time. Current Visit: Yes Status: Acute Code(s): K62.5 - HEMORRHAGE OF ANUS AND RECTUM SNOMED Code(s): 62476829
--- NOTE | 2024-03-08 12:13 | P.PCN ---
Date of Procedure: 03/08/24 Procedure(s) Performed: PREOPERATIVE DIAGNOSIS: Rectal bleeding POSTOPERATIVE DIAGNOSIS: Small anal fissure PROCEDURE: Colonoscopy ANESTHESIA: MAC SURGEON: Kyler Panchal M.D. SPECIMENS: None ENDOSCOPIC PROCEDURE: The patient was placed on the endoscopy table in the left decubitus position. The Olympus colonoscope was inserted into the anus and passed under direct visualization to the base of the cecum. The appendiceal orifice was visualized. From that point the scope was slowly withdrawn inspecti ng all surfaces carefully. There were no neoplastic inflammatory or polypoid lesions throughout the cecum, ascending, transverse, descending, sigmoid and rectum. There was no visible diverticulosis noted. Digital rectal examination was normal. External evaluation of the anus revealed a very superficial small posterior anal fissure without evidence of bleeding. The patient was taken to the recovery room in stable condition per anesthesia guidelines. RECOMMENDATIONS: Resume diet. Daily MiraLAX. Follow-up colonoscopy 10 years.
[2024-03-08 12:49] VITALS: BP 118/68; PULSE 78; RESP 20
== END 2024-03-08 12:49 | disposition home or self-care (01) ==
LOC: ORWHC2ENDO 10:24
PROVIDERS: ATTEND Surgery
DX: K60.2 Anal fissure, unspecified (principal); K59.00 Constipation, unspecified; I10 Essential (primary) hypertension; E78.5 Hyperlipidemia, unspecified; M19.90 Unspecified osteoarthritis, unspecified site; G47.33 Obstructive sleep apnea (adult) (pediatric); Z79.899 Other long term (current) drug therapy; Z98.890 Other specified postprocedural states; Z96.653 Presence of artificial knee joint, bilateral
CPT/HCPCS: 45378; J2704; J2003